=== PATIENT | female | born 1985 | race American Indian/Alaskan Native ===

== ENCOUNTER 2019-08-28 12:10 | Day surgery (SDC) | payer OTHER ==
[2019-08-28] MEDS ORDERED: LACTATED RINGERS 1,000 ML IV SCH (13:16)
[2019-08-28] MEDS ORDERED: ZOFRAN IV PRN (13:26)
[2019-08-28] MEDS ORDERED: SUBLIMAZE IV PRN (13:26)
--- NOTE | 2019-08-28 13:27 | Anesthesia Day of Surgery ---
Anesthesia Day of Surgery - Day of Surgery Patient Examined: Yes Patient H&P Reviewed: Yes Patient is NPO: Yes
--- NOTE | 2019-08-28 13:31 | Anesthesia Consultation ---
Anesthesia Consult and Med Hx Date of service: 08/28/19 - Airway Anesthetic Teeth Evaluation: Crowns ROM Head & Neck: Adequate Mental/Hyoid Distance: Adequate Mallampati Class: Class II Intubation Access Assessment: Good - Pre-Operative Health Status ASA Pre-Surgery Classification: ASA2 Proposed Anesthetic Plan: General - Pulmonary Hx Smoking: No Hx Sleep Apnea: No - Central Nervous System Hx Neuromuscular Disorder: Yes (SLE) Hx Back Pain: No (RA-last steroids in February. Denies neck issues) Hx Psychiatric Problems: No - Gastrointestinal Hx Gastroesophageal Reflux Disease: Yes - Hematic Hx Anemia: No - Other Systems Hx Alcohol Use: Yes (OCC.) Hx Substance Use: No Hx Cancer: No
[2019-08-28] MEDS ORDERED: ZOFRAN ONE (13:59)
[2019-08-28] MEDS ORDERED: XYLOCAINE MPF 2% ONE (13:59)
[2019-08-28] MEDS ORDERED: DIPRIVAN 10 MG/ML IV ONE (13:59)
[2019-08-28] MEDS ORDERED: DECADRON ONE (13:59)
[2019-08-28] MEDS ORDERED: SUBLIMAZE ONE (13:59)
[2019-08-28] MEDS ORDERED: SILVER NITRATE TP ONE (14:00)
[2019-08-28] MEDS ORDERED: MONSEL'S TP ONE ×3 (14:00→15:00)
[2019-08-28] MEDS ORDERED: LUGOL'S SOLUTION 5% TP ONE (14:01)
[2019-08-28] MEDS ORDERED: PHENYLEPHRINE/NS Syringe 1,000 MCG/10 ML IV ONE (14:03)
--- NOTE | 2019-08-28 15:24 | Operative Report ---
Operative Report Operative Report: DATE OF OPERATION: 08/28/19 POSTOPERATIVE DIAGNOSIS: Cervical intraepithelial neoplasia, grade2 OPERATION PERFORMED: Loop electrosurgical excision procedure with top hat and endocervical curettings. SURGEON:Katalina Lee MD ANESTHESIA: General anesthesia. INDICATIONS FOR PROCEDURE: The patient is a 34-year-old with a history of abnormal Pap smear. A colposcopy demonstrated GANESH 2. The patient has Lupus past medical history. The patient was advised to undergo a LEEP procedure. All risks and benefits were discussed with the patient including potential risk of labor, cervical incompetence and premature rupture of membranes should she become in the future. The patient accepted these risks. All questions were answered and the patient was taken to the operating room in stable condition. PERTINENT FINDINGS: Bimanual examination revealed a normal sized midline uterus with no adnexal masses palpated. Cervix did not appear to have any gross masses. Lugol's solution revealed areas of non-uptake around the entire squamocolumnar junction. SPECIMENS: Ectocervix with pices as tuissue was very hard and friable ESTIMATED BLOOD LOSS: Minimal. IV FLUIDS: 600 mL of lactated Ringer's. DESCRIPTION OF PROCEDURE: The patient was taken to the OR where she was placed under general anesthesia without difficulty. She was then prepped and draped in the usual sterile fashion and placed in the dorsal lithotomy position. A preoperative bimanual examination revealed findings as above. A preoperative beta quantitative test was negative for as well. At this time, the large Graves speculum was placed in the vagina. Lugol's solution was painted along the entire cervix and vaginal wall. Areas of non- uptake were noted to be around the entire squamocolumnar junction. The large loop electrode was used to remove the anterior or top portion of the cervix and a separate posterior specimen was excised and sent to pathology. The pieces came out in smal friable pieces as tissue was very hard. Additional knives used to r emove remaining tissue. T The bed of the excised cervical tissue along the cervix was cauterized using the roller ball. Hemostasis was noted with monsels and stitch at the 1100 position . All instruments were removed from vagina at this point. The patient tolerated the procedure well without complication and was taken to the recovery room in stable condition.
[2019-08-28] MEDS ORDERED: PERCOCET 5/325 PO PRN (15:33)
[2019-08-28 17:14] VITALS: BP 127/85
--- NOTE | 2019-08-28 21:16 | Post Anesthesia Evaluation ---
- Post Anesthesia Evaluation Patient Participated: Yes Airway Patent: Yes Stable Respiratory Function: Yes Nausea/Vomiting: No Temp > 96.8F: Yes Pain Manageable: Yes Adequeate Hydration: Yes Anesthesia Complications: No Block Receding Appropriately: Not Applicable Patient on Ventilator: No
== END 2019-08-28 16:50 | disposition home or self-care (01) ==
LOC: OR 12:10
PROVIDERS: ATTEND Obstetrics & Gynecology
DX: N87.1 Moderate cervical dysplasia (principal); K21.9 Gastro-esophageal reflux disease without esophagitis; Z79.899 Other long term (current) drug therapy; Z88.0 Allergy status to penicillin; Z98.890 Other specified postprocedural states
CPT/HCPCS: 57522; 81025; 88307; J1100; J2370; J2405; J2704; J3010; J7120